=== PATIENT | male | born 1950 ===

== ENCOUNTER 2017-01-02 05:36 | Emergency (ER) | payer OTHER ==
--- NOTE | 2017-01-02 07:06 | ED ORDER SUMMARY ---
..... Patient: RENETTA GARCIA JR OrderSheet [facility] VisitID: [id number] [address] [place] [address] 66y, M Registration Date/Time: 01/02/2017 ORDER SHEET Weight: 77.1 kg (stated) Allergies: Darvon-N, Tramadol HCL GENERAL ORDERS: Culture, Wound Surface (Buttock) (swab) Urgent (07:03 01/02/2017 Anita SALGADO) (Ack 7:07 LMuller) (7:10 LMuller) MEDICATION ORDERS: Bactrim DS PO (Tablet 800-160 mg) 2 tabs (NOW) (07:03 01/02/2017 Anita SALGADO) (Ack 7:07 KPaLadi R.N.) (7:16 Brigido R.N.) IV FLUIDS: ORDER SHEET NOTES: [Electronically signed by Odalys Grimm R.N. (11:24 01/02/2017)] [Electronically signed by Trinity Rico MD (13:59 01/15/2017)] [Electronically locked/signed by Odalys Grimm R.N. (11:24 01/02/2017)]
--- NOTE | 2017-01-02 07:06 | ED ORDER SUMMARY ---
..... Patient: RENETTA GARCIA JR OrderSheet Located [facility] VisitID: [id number] [address] [place] [address] 66y, M Registration Date/Time: 01/02/2017 ORDER SHEET Weight: 77.1 kg (stated) Allergies: Darvon-N, Tramadol HCL GENERAL ORDERS: Culture, Wound Surface (Buttock) (swab) Urgent (07:03 01/02/2017 Anita SALGADO) (Ack 7:07 LMuller) (7:10 LMuller) MEDICATION ORDERS: Bactrim DS PO (Tablet 800-160 mg) 2 tabs (NOW) (07:03 01/02/2017 Anita SALGADO) (Ack 7:07 KPaLadi R.N.) (7:16 Brigido R.N.) IV FLUIDS: ORDER SHEET NOTES: [Electronically signed by Odalys Grimm R.N. (11:24 01/02/2017)] [Electronically signed by Trinity Rico MD (13:59 01/15/2017)] [Electronically locked/signed by Odalys Grimm R.N. (11:24 01/02/2017)]
--- NOTE | 2017-01-02 07:06 | ED NURSING NOTES ---
Clinical Report - Nurses [facility] [address] [place] [address] 01/02/2017 5:37 [id number] TRI[facility] Triage time 05:Jan 02 2017. Acuity: LEVEL 4. Chief Complaint: TENDER AREA and . Left buttocks abcess. 05:45 01/02/17. --05:45 Libby Rebollar R.N. 05:41 01/02/17. BP: 115/60 (regular adult cuff) taken on the left arm. HR: 95. RR: 20. O2 saturation: 97% on room air. Temp: 99 F (oral). Pain level now: 02/09. --05:45 Libby Rebollar R.N. Weight: 77.1 kg stated. Height/Length: 66 inches Per Patient. BMI: 27.4. --05:42 Libby Rebollar R.N. Medications None. --05:42 Libby Rebollar R.N. Allergies Darvon-N. Tramadol HCL. --05:42 Libby Rebollar R.N. History Arrived by private vehicle. Historian: patient. Accompanied by family. Reported as (Left buttocks). Onset. (4 days ago). It is described as painful. Treatment BLACK TOP ROLLER: None. SOCIAL HX: Current every day heavy tobacco smoker- 1 pack per day. History of weekly drug use: heroin. Recently used drugs days ago. (2). No alcohol use. No infectious disease exposure. ABUSE ASSESSMENT: No report of abuse. --05:45 Libby Rebollar R.N. PROBLEMS: Lifestyle / Substance Problems [Active]. Cellulitis [Active]. --05:42 Libby Rebollar R.N. Chronic Venous Insufficiency. Cellulitis. DVT - Deep Venous Thrombosis. MRSA Infection. Abscess. --05:42 Libby Rebollar R.N. ADDITIONAL SURGERIES: Knee Surgery. Left arm surgery (abscess drainage). --05:42 Libby Rebollar R.N. Interventions ID band on patient. To treatment room. --05:45 Libby Rebollar R.N. PHYSICAL ASSESSMENT 05:46 01/02/17. Ambulatory to room. Patient gowned. GENERAL / NEURO / PSYCH: Alert. Appears in pain. Oriented X 4. HEENT: Pupils equal, round and reactive to light. Mucous membranes are pink. RESPIRATORY: Respirations not labored. Breath sounds within normal limits. CVS: Capillary refill less than 2 seconds. Pulses within normal limits. GI / : Abdomen nontender. SKIN: Skin is warm. Single skin lesion with erythema, tenderness and increased warmth on the left buttock. --05:46 Libby Rebollar R.N. NURSING PROGRESS NOTES 05:46 01/02/17. The plan of care for this patient has been created. Patient gowned. Head of bed elevated. Reassurance given. Two patient identifiers checked. Call light placed in reach. Side rails up x 2. Bed placed in lowest position. Brakes of bed on. Patient ready for evaluation- chart flagged and ED physician notified. --05:46 Libby Rebollar R.N. I & D: Incision and Drainage of abscess performed by ED physician. Assisted by one tech. The abscess is located on the left buttock. Preparation: Incision and Drainage tray set up with 1% lidocaine with epi. Procedure; a small amount of pus was drained. Cavity was irrigated with saline and packed with gauze. Sample obtained for cultures. A dressing was applied. Post-procedure: he was stable, no complications, bleeding controlled and dressing intact. Total time of assist / procedure: 15 minutes. --07:02 Raad Bettencourt, ROSEANNA Interim Controller Care transferred and report given (CAMDEN Morrow). --07:03 Libby Rebollar R.N. 07:11 01/02/2017 Bactrim DS (Sulfamethoxazole-TMP DS) PO 2 tab given. Allergies verified and confirmed 5 rights. --07:16 Odalys Grimm R.N. DISPOSITION / DISCHARGE Departure time: 07:14 Jan 02 2017. No learning barriers present. Discharge instructions provided and reviewed with the patient. Reviewed medication(s) side effects and course information. Prescription(s) given to the patient. Patient verbalized understanding. Written instructions provided in French. The patient was discharged by the physician. He was discharged home. He left the Emergency Department ambulatory. ( pt dc only by this RN, pt strongly encouraged to pickup his rx and complete the series as well as f/u in 2 days with his pcp or here for recheck. s/sx of increased infection gone over with pt- pt verbalizes understanding. pt dc ambulatory to lobby with steady gait). --07:19 Odalys Grimm R.N. 07:16 01/02/17. BP: 109/64. HR: 89. RR: 17. O2 saturation: 98%. Temp: deferred. Pain level now: 12/10. --07:19 Odalys Grimm R.N. Locked/Released at 01/02/2017 11:24 by Odalys Grimm R.N.
--- NOTE | 2017-01-02 07:06 | ED NURSING NOTES ---
Clinical Report - Nurses [facility] [address] [place] [address] 01/02/2017 5:37 [id number] Triage time 05:Jan 02 2017. Acuity: LEVEL 4. Chief Complaint: TENDER AREA and . Left buttocks abcess. 05:45 01/02/17. --05:45 Libby Rebollar R.N. 05:41 01/02/17. BP: 115/60 (regular adult cuff) taken on the left arm. HR: 95. RR: 20. O2 saturation: 97% on room air. Temp: 99 F (oral). Pain level now: 02/09. --05:45 Libby Rebollar R.N. Weight: 77.1 kg stated. Height/Length: 66 inches Per Patient. BMI: 27.4. --05:42 Libby Rebollar R.N. Medications None. --05:42 Libby Rebollar R.N. Allergies Darvon-N. Tramadol HCL. --05:42 Libby Rebollar R.N. History Arrived by private vehicle. Historian: patient. Accompanied by family. Reported as (Left buttocks). Onset. (4 days ago). It is described as painful. Treatment PORTFOLIO MANAGER: None. SOCIAL HX: Current every day heavy tobacco smoker- 1 pack per day. History of weekly drug use: heroin. Recently used drugs days ago. (2). No alcohol use. No infectious disease exposure. ABUSE ASSESSMENT: No report of abuse. --05:45 Libby Rebollar R.N. PROBLEMS: Lifestyle / Substance Problems [Active]. Cellulitis [Active]. --05:42 Libby Rebollar R.N. Chronic Venous Insufficiency. Cellulitis. DVT - Deep Venous Thrombosis. MRSA Infection. Abscess. --05:42 Libby Rebollar R.N. ADDITIONAL SURGERIES: Knee Surgery. Left arm surgery (abscess drainage). --05:42 Libby Rebollar R.N. Interventions ID band on patient. To treatment room. --05:45 Libby Rebollar R.N. PHYSICAL ASSESSMENT 05:46 01/02/17. Ambulatory to room. Patient gowned. GENERAL / NEURO / PSYCH: Alert. Appears in pain. Oriented X 4. HEENT: Pupils equal, round and reactive to light. Mucous membranes are pink. RESPIRATORY: Respirations not labored. Breath sounds within normal limits. CVS: Capillary refill less than 2 seconds. Pulses within normal limits. GI / : Abdomen nontender. SKIN: Skin is warm. Single skin lesion with erythema, tenderness and increased warmth on the left buttock. --05:46 Libby Rebollar R.N. NURSING PROGRESS NOTES 05:46 01/02/17. The plan of care for this patient has been created. Patient gowned. Head of bed elevated. Reassurance given. Two patient identifiers checked. Call light placed in reach. Side rails up x 2. Bed placed in lowest position. Brakes of bed on. Patient ready for evaluation- chart flagged and ED physician notified. --05:46 Libby Rebollar R.N. I & D: Incision and Drainage of abscess performed by ED physician. Assisted by one tech. The abscess is located on the left buttock. Preparation: Incision and Drainage tray set up with 1% lidocaine with epi. Procedure; a small amount of pus was drained. Cavity was irrigated with saline and packed with gauze. Sample obtained for cultures. A dressing was applied. Post-procedure: he was stable, no complications, bleeding controlled and dressing intact. Total time of assist / procedure: 15 minutes. --07:02 Raad Bettencourt, ROSEANNA Ore Roaster Care transferred and report given (CAMDEN Morrow). --07:03 Libby Rebollar R.N. 07:11 01/02/2017 Bactrim DS (Sulfamethoxazole-TMP DS) PO 2 tab given. Allergies verified and confirmed 5 rights. --07:16 Odalys Grimm R.N. DISPOSITION / DISCHARGE Departure time: 07:14 Jan 02 2017. No learning barriers present. Discharge instructions provided and reviewed with the patient. Reviewed medication(s) side effects and course information. Prescription(s) given to the patient. Patient verbalized understanding. Written instructions provided in Croatian. The patient was discharged by the physician. He was discharged home. He left the Emergency Department ambulatory. ( pt dc only by this RN, pt strongly encouraged to pickup his rx and complete the series as well as f/u in 2 days with his pcp or here for recheck. s/sx of increased infection gone over with pt- pt verbalizes understanding. pt dc ambulatory to lobby with steady gait). --07:19 Odalys Grimm R.N. 07:16 01/02/17. BP: 109/64. HR: 89. RR: 17. O2 saturation: 98%. Temp: deferred. Pain level now: 12/10. --07:19 Odalys Grimm R.N. Locked/Released at 01/02/2017 11:24 by Odalys Grimm R.N.
--- NOTE | 2017-01-02 07:06 | ED CLINICAL REPORT ---
Clinical Report - Physicians/Mid Levels [facility] [address] [place] [address] 01/02/2017 5:37 Patient: RENETTA GARCIA JR Time Seen: 06:20. Arrived- By private vehicle. Historian- patient. HISTORY OF PRESENT ILLNESS Chief Complaint: BOIL. This started several days ago and is still present. It is described as painful. It has been located on the left buttock. A cause has been identified (Pt shoots in the area.). Similar symptoms previously: Many times. Recent medical care: Not recently seen/assessed. REVIEW OF SYSTEMS No fever, chills, sore throat, cough or difficulty breathing. No hoarseness, lump in throat, enlarged lymph nodes, headache or eye irritation. No chest pain, abdominal pain, nausea, diarrhea or difficulty with urination. No joint pain or vomiting. All systems otherwise negative, except as recorded above. PAST HISTORY Problems: Lifestyle / Substance Problems [Active]. Chronic Venous Insufficiency. DVT - Deep Venous Thrombosis. MRSA Infection. Tetanus Status. Immunizations. Additional Surgeries: Knee Surgery. Left arm surgery (abscess drainage). Medications: None. Allergies: Darvon-N. Tramadol HCL. SOCIAL HISTORY Smoker- current status unknown. History of drug use: heroin. ADDITIONAL NOTES The nursing notes have been reviewed. PHYSICAL EXAM Vital Signs: 01/02/2017 05:41 BP: 115/60. HR: 95. RR: 20. O2 saturation: 97%. Temp: 99 F. Pain level now: 7/10. Have been reviewed. Appearance: No acute distress. (Pt is drowsy, but arousable, and appropriate when aroused.). Eyes: Pupils equal, round and reactive to light. Conjunctivae and eyelids normal. ENT: Nose normal. Neck: Neck supple. CVS: Normal heart rate and rhythm. Heart sounds normal. Respiratory: No respiratory distress. Breath sounds normal. Abdomen: Nontender. Skin: Skin warm and dry. Large abscess with fluctuance to left buttock. Extremities: (Pt has scarring, consistent with IVDA and prior abscesses. Otherwise, besides L buttock abscess, exam is normal.). Neuro: (Drowsy, otherwise grossly normal.). LABS, X-RAYS, AND EKG Pulse Oximetry: 01/02/2017 05:41 O2 saturation: 97%. (FIO2 - room air). Interpretation: normal. PROGRESS AND PROCEDURES Incision & Drainage of Abscess: The abscess is located in the left buttock. The risks of the procedure, benefits and alternatives were explained. Consent was obtained. Local anesthesia provided using 2% lidocaine. Skin cleansed with Betadine. The abscess was incised with a #11 surgical blade. A moderate amount of pus was drained. Cavity was irrigated with saline and packed with gauze. Word catheter was placed. Sample obtained for cultures and gram stain. A dressing was applied. ( Loculations were digitially disrupted during the procedure.). Course of Care: Pt was given a dose of Bactrim in the ED, after I&D. Patient counseled in person regarding the patient's stable condition, diagnosis, need for follow-up and wound care. Concerns were addressed. Old medical records reviewed. Disposition: Discharged. Condition: stable and improved. CLINICAL IMPRESSION Cellulitis of the buttocks. Single superficial abscess to the left lower extremity with incision and drainage (buttock). INSTRUCTIONS (Please take your antibiotics every day, as directed. Come back in 2 days to have your wound rechecked.). Warnings: GENERAL WARNINGS: Return or contact your physician immediately if your condition worsens or changes unexpectedly, if not improving as expected, or if other problems arise. Prescription Medications: Bactrim DS 800 mg / 160 mg: take 1 tablet orally every 12 hours for 7 days. No refill. Substitution is permissible. Follow-up: Follow up with your doctor in two days for wound check. Understanding of the discharge instructions verbalized by patient. (Electronically signed by Trinity Rico MD 01/15/2017 13:59)
--- NOTE | 2017-01-15 13:59 | ED MED RECONCILIATION SUMMARY ---
Patient: RENETTA GARCIA Medication Reconciliation Report [facility] VisitID: [id number] [place] [address] 66y, M Registration Date/Time: 01/02/2017 Weight: 77.1 kg Height/Length: 66 in. BMI: 27.4 ALLERGIES: Darvon-N, Tramadol HCL The patient's Home Medications are listed below: NONE. The source(s) of the original Home Medication information: Not obtained. The following Medications were given to the patient in the Emergency Department: Bactrim DS [PO] PO 2 tab, administered: 01/02/2017 7:11:00 AM The following Medications were prescribed to the patient: Bactrim DS 800 mg / 160 mg: take 1 tablet orally every 12 hours for 7 days. No refill. Substitution is permissible. -- Trinity Rico MD
--- NOTE | 2017-01-15 13:59 | ED MAR SUMMARY ---
..... Medication Administration Record [facility] [address] [place] [address] Patient: RENETTA GARCIA Visit ID: [id number] 66y, M Weight: 77.1 kg Height/Length: 66 in BMI: 27.4 ALLERGIES: Darvon-N, Tramadol HCL Given 07:11 01/02/2017 Odalys Grimm R.N. Medication Administered: BACTRIM DS [PO] (SULFAMETHOXAZOLE-TMP DS), Dose: 2 tab PO. Medication Ordered: Bactrim DS PO (Tablet 800-160 mg) 2 tabs (NOW).
--- NOTE | 2017-01-15 13:59 | ED DISCHARGE INSTRUCTIONS ---
Patient: RENETTA GARCIA JR General Instructions [facility] VisitID: [id number] [place] [address] 66y, M Registration Date/Time: 01/02/2017 Cellulitis of the buttocks. Single superficial abscess to the left lower extremity with incision and drainage (buttock). INSTRUCTIONS (Please take your antibiotics every day, as directed. Come back in 2 days to have your wound rechecked.). Warnings: GENERAL WARNINGS: Return or contact your physician immediately if your condition worsens or changes unexpectedly, if not improving as expected, or if other problems arise. Prescription Medications: Bactrim DS 800 mg / 160 mg: take 1 tablet orally every 12 hours for 7 days. No refill. Substitution is permissible. Follow-up: Follow up with your doctor in two days for wound check. Understanding of the discharge instructions verbalized by patient. ADDITIONAL INFORMATION Abscess [Incision & Drainage] An abscess (sometimes called a boil) occurs when bacteria get trapped under the skin and begin to grow. Pus forms inside the abscess as the body responds to the bacteria. An abscess can occur with an insect bite, ingrown hair, blocked oil gland, pimple, cyst, or puncture wound. Treatment of your abscess has required an incision to drain the pus. If the abscess pocket was large, a gauze packing may have been inserted. This will need to be removed and possibly replaced on your next visit. Antibiotics are not required in the treatment of a simple abscess, unless the infection is spreading into the skin around the wound (known as cellulitis). Healing of the wound will take about one to two weeks depending on the size of the abscess. Healthy tissue will grow from the bottom and sides of the opening until it seals over. Home Care: The wound may drain for the first two days. Cover the wound with a clean dry dressing. If the dressing becomes soaked with blood or pus, change it. If a gauze packing was placed inside the abscess cavity, you may be advised to remove it yourself. You may do this in the shower. Once the packing is removed, you should wash the area in the shower or bath 3 to 4 times a day, until the skin opening has closed. If you were prescribed antibiotics, take them as directed until they are all gone. You may use acetaminophen (Tylenol) or ibuprofen (Motrin, Advil) to control pain, unless another pain medicine was prescribed. [ NOTE: If you have liver disease or ever had a stomach ulcer, talk with your doctor before using these medicines.] Follow Up with your doctor as advised by our staff. If a gauze packing was inserted in your wound, it should be removed in 1-2 days. Check your wound every day for the signs of worsening infection listed below. Get Prompt Medical Attention if any of the following occur: Increasing redness or swelling Red streaks in the skin leading away from the wound Increasing local pain or swelling Continued pus draining from the wound two days after treatment Fever of 100.4F (38C) or higher, or as directed by your healthcare provider You have been given the following additional information: Abscess, Incision And Drainage (Electronically signed by Trinity Rico MD 01/15/2017 13:59)
--- NOTE | 2017-01-15 13:59 | ED MAR SUMMARY ---
..... Medication Administration Record [facility] [address] [place] [address] Patient: RENETTA GARCIA Visit ID: [id number] 66y, M Weight: 77.1 kg Height/Length: 66 in BMI: 27.4 ALLERGIES: Darvon-N, Tramadol HCL Given 07:11 01/02/2017 Odalys Grimm R.N. Medication Administered: BACTRIM DS [PO] (SULFAMETHOXAZOLE-TMP DS), Dose: 2 tab PO. Medication Ordered: Bactrim DS PO (Tablet 800-160 mg) 2 tabs (NOW).
--- NOTE | 2017-01-15 13:59 | ED MED RECONCILIATION SUMMARY ---
Patient: RENETTA GARCIA Medication Reconciliation Report [facility] VisitID: [id number] [place] [address] 66y, M Registration Date/Time: 01/02/2017 Weight: 77.1 kg Height/Length: 66 in. BMI: 27.4 ALLERGIES: Darvon-N, Tramadol HCL The patient's Home Medications are listed below: NONE. The source(s) of the original Home Medication information: Not obtained. The following Medications were given to the patient in the Emergency Department: Bactrim DS [PO] PO 2 tab, administered: 01/02/2017 7:11:00 AM The following Medications were prescribed to the patient: Bactrim DS 800 mg / 160 mg: take 1 tablet orally every 12 hours for 7 days. No refill. Substitution is permissible. -- Trinity Rico MD
== END 2017-01-02 07:14 | disposition home or self-care (01) ==
LOC: ED SRH 05:36
DX: L02.31 Cutaneous abscess of buttock (principal); L03.317 Cellulitis of buttock; Z88.8 Allergy status to other drugs, medicaments and biological substances; Z72.0 Tobacco use; Z86.14 Personal history of Methicillin resistant Staphylococcus aureus infection; Z86.718 Personal history of other venous thrombosis and embolism
CPT/HCPCS: 90131; 90309